=== PATIENT | male | born 1995 | race Caucasian/White ===

== ENCOUNTER 2024-02-19 04:52 | Emergency (ER) | payer OTHER ==
[~2024-02-19] VITALS: Ht 188 cm; Wt 104.5 kg
[2024-02-19 04:58] VITALS: BP 150/86; PULSE 100; RESP 18; TEMP 97.9; O2SAT 96
[2024-02-19] MEDS: LIDOCAINE 1% 10 ML VIAL ID ONE (06:52)
== END 2024-02-19 07:10 | disposition home or self-care (01) ==
LOC: EMS 04:57
DX: S61.411A Laceration without foreign body of right hand, initial encounter (principal); I10 Essential (primary) hypertension; W25.XXXA Contact with sharp glass, initial encounter; Y93.89 Activity, other specified; Y92.89 Other specified places as the place of occurrence of the external cause; Y99.0 Civilian activity done for income or pay
CPT/HCPCS: 99282; 12001; J3490